=== PATIENT | male | born 1950 | race Caucasian/White ===

== ENCOUNTER → 2017-07-04 | Outpatient (CLI) | payer OTHER ==
[~2017-07-04] MED LIST: PERIOGARD473 ML MM; PRINIVIL5 MG PO; PROBIOTIC1 EAC4 PO; ZOCOR40 MG PO
== END | disposition home or self-care (01) ==
LOC: OPR 08:00 → RAD 08:36 → EDSTATUS 09:00 → OPR 09:00 → RAD 09:00
PROC: 07B63ZX Excision of Left Axillary Lymphatic, Percutaneous Approach, Diagnostic (ICD-10-PCS; principal; 2017-07-04)
DX: C44.629 Squamous cell carcinoma of skin of left upper limb, including shoulder (principal)
CPT/HCPCS: 77012; 88305; 88341 TC; 88342 TC

== ENCOUNTER → 2017-07-07 | Outpatient (CLI) | payer OTHER, MEDICARE | END | disposition home or self-care (01) | LOC: CDC 12:37 | DX: Z01.810 Encounter for preprocedural cardiovascular examination (principal); I44.0 Atrioventricular block, first degree; R94.31 Abnormal electrocardiogram [ECG] [EKG] | CPT/HCPCS: 93000 ==

== ENCOUNTER 2017-07-09 10:23 | Day surgery (SDC) | payer OTHER ==
[~2017-07-09] VITALS: Ht 188 cm; Wt 109.3 kg
[2017-07-09 10:53] VITALS: BP 149/74
[2017-07-09 15:41] VITALS: BP 140/73
[2017-07-09 16:08] VITALS: BP 140/70
== END 2017-07-09 16:17 | disposition home or self-care (01) ==
LOC: SDC
DX: C76.42 Malignant neoplasm of left upper limb (principal); L82.1 Other seborrheic keratosis; E78.5 Hyperlipidemia, unspecified; I10 Essential (primary) hypertension; Z88.0 Allergy status to penicillin
CPT/HCPCS: 88305; 88331; J1100; J1170; J1885; J2250; J2405; J3370; S0020